=== PATIENT | male | born 1970 | race Caucasian/White ===

== ENCOUNTER 2022-10-07 18:42 | Emergency (ER) | payer OTHER, SELFPAY ==
[2022-10-07 18:46] VITALS: BP 165/108; PULSE 77; RESP 20; TEMP 36.6; O2SAT 94; BMI 54.6
[2022-10-07 23:36] VITALS: BP 148/69; PULSE 60; RESP 18; O2SAT 94
--- NOTE | 2022-10-07 23:38 | ED.WOUNDLAC ---
HPI - Wound/Laceration General Chief Complaint: Wound/Laceration Stated Complaint: lt pointer finger lac Time Seen by Provider: 10/07/22 22:42 Source: patient Mode of arrival: Ambulatory History of Present Illness HPI narrative: 51-year-old gentleman was working in the Where today, put down the edge tremor and at his finger in the way with the last rotation of the blade and suffered a laceration to the left index finger. It involves the distal phalanx pad, bleeding is controlled, nail bed is not involved. Some slight decreased sensation but still does have sensation over the tip of the finger. Good capillary refill. Related Data Allergies Allergy/AdvReac Type Severity Reaction Status Date / Time Penicillins Allergy Swelling Verified 10/07/22 18:46 of the Eye codeine AdvReac Hives Verified 10/07/22 18:46 Review of Systems Review of Systems Narrative: Pertinent positive and negative findings as per HPI Patient History Social History Smoking Status: Never smoker Smoking Status: Never smoker Substance Use Type: does not use Exam Initial Vital Signs Initial Vital Signs: Vital Signs Temperature 97.8 F 10/07/22 18:46 Pulse Rate 77 10/07/22 18:46 Respiratory Rate 20 10/07/22 18:46 Blood Pressure 165/108 H 10/07/22 18:46 Pulse Oximetry 94 10/07/22 18:46 Oxygen Delivery Method Room Air 10/07/22 18:46 General: Alert appropriate in no acute distress Respiratory: Able to speak in full sentences, no obvious respiratory distress Skin: No obvious rashes, warm and dry Neurologic: Grossly intact no obvious asymmetries or abnormalities Psych: appropriate insight and affect, cooperative Extremity: 1.5 cm laceration over the tip of the right index finger, the wound is clean, slight decreased sensation but good capillary refill Procedures Laceration Repair Right index finger: Time of procedure: 23:57 Site: hand Side (If applicable): right Size (cm): 1.5 Description: linear Depth: simple, single layer Local Anesthetic: lidocaine 1% Amount of anesthesia used (mL): 2 Pre-repair: wound explored and deep structures intact Skin layer closed with: nylon Skin layer suture size: 4-0 Number of sutures: 5 Technique: simple, interrupted Course Vital Signs Vital signs: Vital Signs - 8 hr 10/07/22 18:46 10/07/22 23:36 Temperature 97.8 F Pulse Rate 77 60 Respiratory Rate 20 18 Blood Pressure 165/108 H 148/69 H Pulse Oximetry 94 94 Oxygen Delivery Method Room Air Room Air MDM - Wound/Laceration MDM Narrative Medical decision making narrative: CC: Laceration to fingertip. Acute self-limited Data collected from: patient, Differential considered: Minor laceration, deeper laceration, bone involvement, nail involvement Exam documented above, pertinent findings include: Laceration into the pad of the finger not involving bone, tendon or nail bed Treatments: Laceration repair, tetanus status is updated Discussion: 5 sutures were placed in the right index finger. No nail bed involvement. Patient tolerated the procedure well. Recommended sutures removed in approximately 7 days. Elevating the hand if there is any throbbing and use of ibuprofen and Tylenol if there is pain. The wound is fairly clean and I think the risk of infection is swollen enough that oral antibiotics are not indicated. His last tetanus was greater than 10 years ago and is given today. Questions are answered and he is safe for discharge home Discharge Plan Departure Patient Disposition: Home Clinical Impression: Laceration Instructions: DI for Minor Laceration Activity Restrictions/Additional Instructions: Thank you for coming in today Glad your finger is still attached! You will need the stitches taken out in about a week. If there seems to be signs of infection such as increasing pain, redness or drainage you do need to be seen and re-evaluated. In the meantime I would recommend that you keep the wound covered and clean. Your tetanus status has been updated today. Using 400 mg of ibuprofen (2 [id number] pills) and 1 Tylenol every 6 hours can be very helpful in controlling pain. If you find that you are getting worse or develop any new symptoms, please feel free to return to the emergency department for further evaluation. Stand Alone Forms: Patient Portal/API, Work Release Note
[2022-10-07] MEDS: LIDOCAINE 1% 20 ML (23:52)
[2022-10-08] MEDS: TET,DIPH,PERTUSS(ACELL),VAC/PF 0.5 ML SYRINGE IM (00:02)
[2022-10-08] MEDS: BACITRACIN OINT 0.9 GM PCKT 1 APPLIC TOP (00:02)
== END 2022-10-08 00:10 | disposition home or self-care (01) ==
PROVIDERS: Emergency Provider Emergency Medicine
DX: S61.211A Laceration without foreign body of left index finger without damage to nail, initial encounter (principal); W29.3XXA Contact with powered garden and outdoor hand tools and machinery, initial encounter; Z23 Encounter for immunization
CPT/HCPCS: 12001; 90471; 99283; 90715

== ENCOUNTER 2023-07-04 21:15 | Emergency (ER) | payer OTHER, SELFPAY ==
[2023-07-04 21:20] VITALS: BP 185/94; PULSE 74; RESP 20; TEMP 36.9; O2SAT 93; BMI 59.1
--- NOTE | 2023-07-04 21:42 | ED_ITS ---
HPI - Skin/Abscess/Foreign Bdy General Chief complaint: Skin/Abscess/Foreign Body Stated complaint: painful legs Time Seen by Provider: 07/04/23 21:34 Source: patient Mode of arrival: Ambulatory History of Present Illness HPI narrative: Patient is a 52-year-old male who is here for evaluation of an ulcer on the front of his left leg and 1 on the back of his right leg. There is surrounding erythema and swelling to the area. He has had issues like this in the past but they have cleared up and now returned. It is painful to touch. Symptoms started over the past 24-48 hours. Related Data Previous Rx's Medication Instructions Recorded doxycycline hyclate 100 mg tablet 100 mg PO BID 7 days #14 tabs 07/04/23 Allergies Allergy/AdvReac Type Severity Reaction Status Date / Time Penicillins Allergy Swelling Verified 07/04/23 21:32 of the Eye codeine AdvReac Hives Verified 07/04/23 21:32 Review of Systems Constitutional Constitutional: Reports system reviewed and no additional complaints, except as documented Integumentary/Breasts Skin/Breast: Reports system reviewed and no additional complaints, except as documented Neurologic Neurologic: Reports system reviewed and no additional complaints, except as documented Hematologic/Lymphatic On Anticoagulants: No Patient History Social History Smoking Status: Never smoker Smoking Status: Never smoker Substance Use Type: does not use Exam Initial Vital Signs Initial Vital Signs: Vital Signs Temperature 98.5 F 07/04/23 21:20 Pulse Rate 74 07/04/23 21:20 Respiratory Rate 20 07/04/23 21:20 Blood Pressure 185/94 H 07/04/23 21:20 Pulse Oximetry 93 07/04/23 21:20 Oxygen Delivery Method Room Air 07/04/23 21:20 Const General: cooperative, comfortable and No ill appearing [facility] Head: normal to inspection and normocephalic Skin Other: 1 cm ulceration on the posterior aspect of the right lower extremity. There was about a 6 cm area of erythema around this that is warm to the touch. No crepitus felt. Patient has 2 1 cm lacerations on the front of the left lower extremity. There is an 8-10 cm area of erythema around this as well. No crepitus. No drainage. Neuro General: patient alert and patient awake Extrem General: edema Course Orders Ordered: ED Orders 07/04/23 21:45 Wound Culture and Gram Stain Stat Wound Culture and Gram Stain Stat Discontinued Medications Doxycycline Hyclate (Doxycycline Hyclate 100 Mg Tablet) 100 mg PO NOW ONE Stop: 07/04/23 21:44 Last Admin: 07/04/23 21:52 Dose: 100 mg Documented By: LILLIE Vital Signs Vital signs: Vital Signs - 8 hr 07/04/23 21:20 07/04/23 22:00 Temperature 98.5 F Pulse Rate 74 70 Respiratory Rate 20 22 Blood Pressure 185/94 H 182/88 H Pulse Oximetry 93 93 Oxygen Delivery Method Room Air Room Air MDM - Skin/Abscess/Foreign Bdy MDM Narrative Medical decision making narrative: Cultures were taken of both the anterior and posterior wounds. Given the appearance of the wounds they do appear to be associated with cellulitis. Was given 1st dose of antibiotics here in the ER and a prescription was sent to the pharmacy of his choice. There was no indication of abscess. No foreign body noted. Patient is not toxic appearing. Will discharge patient home with return precautions. He expressed understanding and agreement. Discharge Plan Departure Patient Disposition: Home Clinical Impression: Cellulitis, Skin ulcer Instructions: DI for Cellulitis -- Adult Activity Restrictions/Additional Instructions: You can shower like normal. You can use soap and water over the wounds on your legs. Take the antibiotics as directed. The were cultures pending at the time of your discharge and we will contact you if we need to change any antibiotics based on this. Contact your primary doctor for a follow-up. Prescriptions: New doxycycline hyclate 100 mg tablet 100 mg PO BID 7 Days Qty: 14 0RF Referrals: Dolores Contreras MD [Primary Care Provider] - Stand Alone Forms: Patient Portal/API, Work Release Note
[2023-07-04] MEDS: DOXYCYCLINE HYCLATE 100 MG TABLET PO (21:52)
--- NOTE | 2023-07-04 21:54 | PC.NURSE ---
Pt seen and tx by provider before this RN as able to assess.
[2023-07-04 22:00] VITALS: BP 182/88; PULSE 70; RESP 22; O2SAT 93
--- NOTE | 2023-07-04 22:03 | PC.NURSE ---
Xeroform gauze, telfa pads, & elke dressing applied to BLE wounds. Wound care instructions reviewed with pt. States understanding.
== END 2023-07-04 22:02 | disposition home or self-care (01) ==
PROVIDERS: Emergency Provider Emergency Medicine; PCP Family Medicine
DX: L03.116 Cellulitis of left lower limb (principal); L03.115 Cellulitis of right lower limb
CPT/HCPCS: 87070; 87075; 87077; 87147; 87186; 87205; 99283